=== PATIENT | male | born 1975 ===

== ENCOUNTER 2020-08-15 16:00 | Emergency (ER) | payer OTHER ==
[~2020-08-15] VITALS: Ht 165.1 cm; Wt 117.9 kg
[~2020-08-15 16:00] MED LIST: HYZAAR 100-251 EACH
== END 2020-08-15 19:33 | disposition home or self-care (01) ==
LOC: ER 16:00
DX: U07.1 COVID-19 (principal)

== ENCOUNTER 2021-05-16 09:27 | Outpatient (CLI) | payer OTHER | END 2021-05-16 10:00 | disposition home or self-care (01) | LOC: RAD 09:27 | PROVIDERS: ATTEND Orthopaedic Surgery | DX: M25.561 Pain in right knee (principal) ==